=== PATIENT | female | born 1980 | race Caucasian/White ===

== ENCOUNTER 2024-03-11 02:12 | Day surgery (SDC) | payer BC, SELFPAY ==
[2023-12-17 08:42] VITALS: BMI 33.8
--- NOTE | 2024-02-26 14:49 | PC.NURSE ---
Spoke with patient regarding new procedure date and times. Patient denies any changes to allergies, medications, or health history. Patient has no questions regarding procedure or prep at this time.
[2024-03-11 09:18] VITALS: BP 150/89; PULSE 71; RESP 16; TEMP 36.4; O2SAT 100; BMI 33.3
[2024-03-11] MEDS: LACTATED RINGERS 1,000 ML 150 ML IV CONT (09:25)
--- NOTE | 2024-03-11 09:56 | WPDANESEPPF ---
Anes - Initial Pre Proc Eval Procedure: Operation Date: 03/11/24 10:30 Proposed Procedures p Screening Colonoscopy - Joel Hinkle DO Date/Time: 03/11/24 09:56 Surgeon: Joel Hinkle DO Pre Op Diagnosis: Screening for malignant neoplasm of colon Patient Data Age: 43 Gender: F Height: 1.57 m Weight: 82.7 kg Last Vital Signs Temp 36.4 C L 03/11/24 09:18 Pulse 71 03/11/24 09:18 Resp 16 03/11/24 09:18 BP 150/89 H 03/11/24 09:18 Pulse Ox 100 03/11/24 09:18 O2 Del Method Room Air 03/11/24 09:18 Allergies Allergy/AdvReac Type Severity Reaction Status Date / Time No Known Allergies Allergy Verified 03/11/24 09:17 Home Medications Medication Instructions Recorded Confirmed Type atorvastatin 40 mg tablet 40 mg PO DAILY 11/30/23 03/11/24 History Patient hx anesthesia problems: none Family hx anesthesia problems: none Results Review: All pre-operative results and documents have been reviewed as part of the pre-operative evaluation. [facility] Past Medical History Medical History (Updated 03/11/24 @ 09:57 by Sabrina Cox CRNA) Cervical cancer HLD (hyperlipidemia) HSV-1 (herpes simplex virus 1) infection Obesity Surgical History Surgical History History of hysterectomy Family History Family History Mother Depression Hypertension Crohn's disease Sibling Depression Crohn's disease Social History Social History Social History: Single Smoking packs per day: 0.25 Smoking cigarettes per day: 5.0 Years smoked: 15 Smoking pack-years: 3.75 Smoking status: Current every day smoker Tobacco type: cigarettes Alcohol intake: never Substance use: current Substance use type: marijuana Other substance usage details: SMOKES MARIJUANA DAILY Do You Feel Safe in your Home?: Yes Lack of Transportation: No Lack of Food: Never True Current Housing: I Have Housing Concerned About Future Housing: No Difficulty Paying Gas/Electric Bills: No Difficulty Paying for Meds: No Currently Unemployed: No Education: Don't Know Difficulty w/ Childcare or Family Care: No Living arrangements: alone Occupation/Education: occupation 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 Gender identity (if verbalized by the patient): Female Sexual Orientation (if Verbalized by the Patient): Straight or Heterosexual Spiritual care concerns: No Anes - Eval Final PreProcedure Day of Procedure 03/11/24 09:56 Heart: regular rate and rhythm Lungs: clear to auscultation Airway: Mallampati scale class 1 and special considerations (edentulous) Neurological: alert and oriented Last oral intake: >/= 8 hours ASA classification: III Emergent: no Anesthetic plan: proceed Anesthesia type and monitoring: general and standard monitoring Results Review: All pre-operative results and documents have been reviewed as part of the pre-operative evaluation. Informed Consent: The patient's anesthetic plan and its attendant risks and benefits were discussed with the patient/family/POA. Questions were solicited and answers provided to the satisfaction of the patient/family/POA.
--- NOTE | 2024-03-11 11:05 | PM.IMHP ---
H&P: HPI History of Present Illness Date/Time: 03/11/24 11:05 Chief Complaint: screening for colorectal cancer Narrative: this is a 43-year-old woman who presents for colonoscopy. She denies any first degree family history of colon cancer. She denies any hematochezia or melena. She does have family history of Crohn's disease. Review of Systems Review of Systems: All systems reviewed & are unremarkable except as noted in HPI and below Constitutional: Constitutional: Denies chills, Denies fever(s), Denies headache(s) and Denies weight loss Eyes: Eyes: Denies change in vision ENT: Denies dizziness, Denies headache(s), Denies neck mass and Denies throat swelling Cardiovascular: Cardiovascular: Denies chest pain, Denies lightheadedness and Denies dyspnea Respiratory: Respiratory: Denies cough, Denies dyspnea and Denies wheezing Gastrointestinal: Gastrointestinal: Denies abdominal pain, Denies change in bowel habits, Denies nausea and Denies vomiting Genitourinary: Genitourinary: Denies hematuria and Denies dysuria Musculoskeletal: Musculoskeletal: Reports as per HPI Integumentary/Breasts: Skin/Breast: Reports as per HPI Neurologic: Denies dizziness and Denies headache(s) Allergic/Immunologic: Allergic/Immunologic: Denies throat swelling and Denies wheezing [facility] Past Medical History Medical History (Updated 03/11/24 @ 09:57 by Sabrina Cox CRNA) Cervical cancer HLD (hyperlipidemia) HSV-1 (herpes simplex virus 1) infection Obesity Surgical History Surgical History History of hysterectomy Family History Family History Mother Depression Hypertension Crohn's disease Sibling Depression Crohn's disease Social History Social History Social History: Single Smoking packs per day: 0.25 Smoking cigarettes per day: 5.0 Years smoked: 15 Smoking pack-years: 3.75 Smoking status: Current every day smoker Tobacco type: cigarettes Alcohol intake: never Substance use: current Substance use type: marijuana Other substance usage details: SMOKES MARIJUANA DAILY Do You Feel Safe in your Home?: Yes Lack of Transportation: No Lack of Food: Never True Current Housing: I Have Housing Concerned About Future Housing: No Difficulty Paying Gas/Electric Bills: No Difficulty Paying for Meds: No Currently Unemployed: No Education: Don't Know Difficulty w/ Childcare or Family Care: No Living arrangements: alone Occupation/Education: occupation 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 Gender identity (if verbalized by the patient): Female Sexual Orientation (if Verbalized by the Patient): Straight or Heterosexual Spiritual care concerns: No Meds Home Medications and Allergies Home Medications Medication Instructions Recorded Confirmed Type atorvastatin 40 mg tablet 40 mg PO DAILY 11/30/23 03/11/24 History Allergies Allergy/AdvReac Type Severity Reaction Status Date / Time No Known Allergies Allergy Verified 03/11/24 09:17 Vital Signs Vital Signs - 24 hr 03/11/24 09:18 Temperature 36.4 C L Pulse Rate 71 Respiratory Rate 16 Blood Pressure 150/89 H Pulse Oximetry 100 Oxygen Delivery Room Air Exam Const: General: no acute distress and alert Orientation/consciousness: patient oriented x3 HENMT: Head: normocephalic and atraumatic Ears: hearing grossly normal bilaterally Face/Nose/Sinus: Normal nares present Mouth: Yes Normal oral and palatal mucosa present Eyes: Periorbital: periorbital findings normal Sclera: sclerae normal EOM: EOMs intact bilaterally Neck: Neck: normal visual inspection, no lymphadenopathy and trachea midline Chest: Chest palpation & inspection: normal inspection of the chest Resp: Effort & Inspectio
[2024-03-11 11:40] VITALS: BP 136/75; PULSE 72; RESP 22; O2SAT 100
[2024-03-11 11:50] VITALS: BP 130/92; PULSE 68; RESP 22; O2SAT 100
[2024-03-11 12:00] VITALS: BP 134/84; PULSE 65; RESP 24; O2SAT 100
== END 2024-03-11 12:10 | disposition home or self-care (01) ==
PROVIDERS: PCP Family Medicine; Visit Provider Surgery
PROC: 0DJD8ZZ Inspection of Lower Intestinal Tract, Via Natural or Artificial Opening Endoscopic (ICD-10-PCS; CPT 45378; principal; 2024-03-11 10:30)
DX: Z12.11 Encounter for screening for malignant neoplasm of colon (principal); D12.2 Benign neoplasm of ascending colon; E78.5 Hyperlipidemia, unspecified; Z85.41 Personal history of malignant neoplasm of cervix uteri; F17.210 Nicotine dependence, cigarettes, uncomplicated; F12.90 Cannabis use, unspecified, uncomplicated; E66.9 Obesity, unspecified; Z68.33 Body mass index [BMI] 33.0-33.9, adult
CPT/HCPCS: 45380; 88305; J7120